=== PATIENT | male | born 1990 | race Hispanic/Latino ===

== ENCOUNTER 2021-03-01 13:44 | Outpatient (CLI) | payer BC | END 2021-03-01 13:45 | disposition home or self-care (01) | LOC: CSHCT 13:44 | PROVIDERS: ATTEND Urology | DX: R10.9 Unspecified abdominal pain (principal); N20.0 Calculus of kidney; N28.89 Other specified disorders of kidney and ureter; N28.1 Cyst of kidney, acquired | CPT/HCPCS: 74176 ==